=== PATIENT | female | born 2000 | race Two or more races ===

== ENCOUNTER 2021-06-30 12:19 | Emergency (ER) | payer OTHER ==
[~2021-06-30] VITALS: Ht 152.4 cm; Wt 77.1 kg
[2021-06-30 13:28] VITALS: BP 123/69
[2021-06-30 13:37] LABS: Basophils # (auto) 0 10 ^3/uL (0-0.2); Basophils % (auto) 0.2 % (0.0-2.0); Eosinophils # (auto) 0.1 10 ^3/uL (0-0.8); Eosinophils % (auto) 0.8 % (0.0-7.0); Hemoglobin 14.2 g/dL (12.2-16.2); Lymphocytes # (auto) 1.1 10 ^3/uL (0.4-5.4); Lymphocytes % (auto) 9.9 % (10.0-50.0); Mean Corpuscular Hemoglobin 29.9 pg (28.0-32.0); Mean Corpuscular Volume 88.2 fL (80.0-100.0); Monocytes # (auto) 0.6 10 ^3/uL (0-1.3); Monocytes % (auto) 5.5 % (0.0-12.0); Neutrophils # (auto) 9.3 10 ^3/uL (1.6-8.6); Neutrophils % (auto) 83.6 % (37.0-80.0); Nucleated Red Blood Cells % 0.1 %; Red Blood Cells 4.76 10^6/uL (4.0-5.20); Red Cell Distribution Width 12.7 % (11.8-14.3); White Blood Cell 11.2 10^3/uL (4.4-10.8)
[2021-06-30 13:45] LABS: Urine Bacteria FEW /hpf (None Seen); Urine Blood 3+ /uL (Negative); Urine Mucus FEW (None Seen); Urine Specific Gravity 1.027 (1.001-1.035); Urine WBC 9 /hpf (0 - 5)
== END 2021-06-30 14:27 | disposition home or self-care (01) ==
LOC: ER 12:19
DX: N92.5 Other specified irregular menstruation (principal); Z32.02 Encounter for pregnancy test, result negative
CPT/HCPCS: 36415; 81001; 84702; 85025